=== PATIENT | male | born 1970 | race Caucasian/White ===

== ENCOUNTER 2024-05-23 10:30 | Outpatient (AMB) | payer BC, SELFPAY ==
--- NOTE | 2024-05-23 10:43 | MHC.OFFVIS ---
Vital Signs 05/23/24 10:55 Height 5 ft 10 in Weight 211 lb 3.245 oz BMI 30.3 BP 126/76 Blood Pressure Location Rt brachial Position Sitting Pulse 68 Pulse Source Pulse Oximeter Pulse Oximetry (%) 96 Oxygen Delivery Method Room Air Intake Visit Reasons: [place] consult. Intake Note: NEW PATIENT for initial colonoscopy consult Chief complaint; Pt denies any GI concerns at this time. Routine screening only. Cardiac hx noted. Stents placed as of last June. 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 male with past medical history of hyperlipidemia, hypertension, status post stent in June of 2019 for is here today for pre colonoscopy screening.? Patient was sent to us by his PCP.? This is his first colonoscopy screening.? Patient denies any gastrointestinal symptoms in the past or at present.? Denies any personal or family history of gastrointestinal disease, colon polyps, or CRC.? Denies history of difficulty with sedation or anesthesia in the past.? Negative for history of sleep apnea.? Denies any history of cardiac, renal, pulmonary, or hepatic disease.?? No history of infectious? diseases like hepatitis A, B, C, HIV or tuberculosis. Patient is on Brilinta and aspirin. Had stents placed last year in June. Patient has appointment with his flight deck officer Dr. Campo. Will send a message to surgical schedulers as well as to RN to call his flight deck officer for clearance [facility] Medical History (Updated 05/23/24 @ 10:54 by CLEMENCIA Carter) Dyslipidemia HTN (hypertension) Surgical History (Updated 05/23/24 @ 10:54 by CLEMENCIA Carter) History of heart artery stent Family History (Updated 05/23/24 @ 10:54 by CLEMENCIA Carter) Mother Cervical cancer Social History (Updated 05/23/24 @ 10:54 by CLEMENCIA Carter) Alcohol intake: current Comment: Socially only Patient Tobacco Use Status: Current someday Tobacco user Tobacco use type: Smokeless Tobacco e-Cigarette/Vaping Use: Never Used Use of substances other than those prescribed or required for medical reasons: No Review of Systems Const Denies weight gain and Denies weight loss ENT Reports no additional complaints, Denies dysphagia and Denies odynophagia Card Reports no additional complaints Resp Reports no additional complaints GI Denies abdominal pain, Denies belching, Denies melena, Denies bloating, Denies change in bowel habits, Denies dysphagia, Denies excessive flatus, Denies dyspepsia, Denies heartburn, Denies diarrhea, Denies loose stools, Denies nausea, Denies odynophagia and Denies vomiting Reports no additional complaints Musc Reports no additional complaints Neuro Reports no additional complaints Psych Reports no additional complaints Endo Reports no additional complaints Physical Exam Vital Signs: Last Vital Signs Pulse 68 05/23/24 10:55 BP 126/76 05/23/24 10:55 Pulse Ox 96 05/23/24 10:55 Oxygen Delivery Method Room Air 05/23/24 10:55 BMI result Body Mass Index 30.3 Const General: healthy appearing and no acute distress Nutritional Appearance: well nourished and obese Orientation/consciousness: patient oriented x3 Resp Effort & Inspection: normal respiratory effort, able to speak in complete sentences, no tracheal deviation and symmetric chest movement Auscultation: clear to auscultation bilaterally Cardio Rate: regular rate GI Inspection: Yes normal to inspection, No distended and Yes obesity Palpation (GI): Soft to palpation, not firm, nontender and No hepatosplenomegaly present Auscultation: normal bowel sounds General: Yes no CVA tenderness Back/Spine/Pelvis Back: no CVA tenderness Skin General skin exam: elasticity normal, turgor normal and dry skin Neuro General: patient oriented x3 Psych Appearance: grossly normal Mental Status: mental status grossly normal Assessment & Plan Assessment & Plan (1) Screen for colon cancer: Code(s): Z12.11 - Encounter for screening for malignant neoplasm of colon Plan Patient denies any GI, cardiac or respiratory symptoms.? However patient did had stents placed in June of last year. Currently he is on Brilinta and aspirin. Patient has a follow-up appointment with his flight deck officer in July. Please call him. Message sent to surgical schedule as an RN to call for clearance. Denies any issues with anesthesia in the past.? Denies any history of sleep apnea.? No history infectious diseases in the past or present.? ? No family or personal history of colon cancer or polyps.? Patient denies melena, hematochezia, unintentional weight loss or ribbon like stools.? Discussed at length the pre-procedure,? prep, diet & medications as well as what to expect prior, during and after the procedure.?? Stressed the importance of good bowel prep.? Recommended the use of Vaseline or Calmoseptine OTC & baby wipes with bowel movements to promote comfort.? ?Patient verbalizes understanding and agrees to plan of care.? He was given the opportunity to ask questions and all questions answered.? We will see him after the procedure.? Coding Level of Care Code New Pt Level 3 (40748) Diagnoses Screen for colon cancer Z12.11 Time Spent (min) 40 Comment 30 minutes spent with patient in additional 10 minutes spent reviewing his records
[2024-05-23 10:55] VITALS: BP 126/76; PULSE 68; O2SAT 96; BMI 30.3
--- OUTSIDE RECORDS SUMMARY | 2024-05-23 12:28 | XMS_ITS | Encounter Summary ---
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 [address] Through [address] [place] [address] [address] [place] [id number] Duglas Rondon, INDRA [address] [place] [address] [id number] Encounter for laboratory testing for COVID-19 virus Social History Tobacco Use Types Packs/Day Years Used Date Smoking Tobacco: Never Assessed Sex and Gender Information Value Date Recorded Sex Assigned at Not on file Gender Identity Not on file Sexual Orientation Not on file documented as of this encounter Plan of Treatment Not on file documented as of this encounter Procedures Procedure Name Priority Date/Time Associated Diagnosis Comments COVID-19 (SARS-COV-2) - SEMA4 LAB Routine 03/17/2020 1:04 PM EST Encounter for laboratory testing for COVID-19 virus [ICD-10-CM] documented in this encounter Results * COVID-19 (SARS-COV-2) (SEMA4) (03/17/2020 1:04 PM EST) COVID-19 RT-PCR NOT-DETEC SAVANA Not-Detec savana 03/19/2020 7:24 PM EST [facility] - [facility] Comment:Interpretation: The viral RNA was not detected, making the COVID-19 diagnosis less likely. Clinical correlation is highly recommended.Final report signed by Dayana Lopez, Ph.D., Laboratory DirectorTests performed at [facility] Nasopharyngeal swab / Unknown 03/17/2020 1:04 PM EST 03/17/2020 1:04 PM EST Narrative LINDSAYEduard CARMEN THOMAS - 03/19/2020 7:24 PM EST Performed by [facility] [address] [place] [address], CLIA# [id number] and [place] License# [id number] Duglas Rondon PA-C MICROBIOLOGY - NERAL ORDERABLES YOVANY THOMAS documented in this encounter Visit Diagnoses Diagnosis Encounter for laboratory testing for COVID-19 virus documented in this encounter
--- OUTSIDE RECORDS SUMMARY | 2024-05-23 12:28 | XMS_ITS | Data Portability ---
Author Organization [facility], , [facility] Address [address] [place] [address] Care Team Providers Care Art Tracer Name Role Phone ARNOLD ANDERSON OTHER [phone] ANGELICA VIVAR Primary Care Provider [phone] Assessment No assessment recorded. Plan of Treatment Reminders Order Date Submit Date Provider Last Modified By Organization Details Last Modified Time Details Appointments None recorded. Lab CMP, serum or plasma 2023 025 [facility], [address] [place] [address], [address], 5 09:34:15 lipid panel, serum 2023 025 [facility], [address] [place] [address], [address], 5 15:50:12 HbA1c (hemoglobin A1c), blood 2023 025 [facility], [address] [place] [address], [address], 5 11:39:05 CBC 2023 025 [facility], [address] [place] [address], [address], 5 10:34:54 lipid panel, serum 2023 024 [facility], [address] [place] [address], [address], 4 15:07:50 CBC 2023 024 [facility], [address] [place] [address], [address], 4 10:38:59 CMP, serum or plasma 2023 024 [facility], [address] [place] [address], [address], 4 15:07:50 lipid panel, serum 2023 024 [facility], [address] [place] [address], [address], 4 11:01:00 CMP, serum or plasma 2023 024 [facility], [address] [place] [address], [address], 4 12:16:05 CBC 2023 024 [facility], [address] [place] [address], 35916, 4 17:02:03 TSH, serum or plasma 2023 024 [facility], [address] [place] [address], [address], 4 10:29:23 CRP, high sensitivity , serum or plasma 2023 024 [facility], [address] [place] [address], [address], 4 19:02:40 lipid panel, serum 2021 022 [facility], [address] [place] [address], [address], 2 11:16:17 CMP, serum or plasma 2021 022 [facility], [address] [place] [address], [address], 2 11:16:15 CBC 2021 022 [facility], [address] [facility], [place], [address], 2 15:40:26 Referral None recorded. Procedures colonoscopy procedure (PROC) [address] [facility], [address] [place], [address], 4 14:42:32 colonoscopy procedure (PROC) - 1st screening colonoscopy [address] [facility], [address] [place], [address], 2 10:23:49 Surgeries None recorded. Imaging None recorded. Medication Orders albuterol sulfate HFA 90 mcg/actuati on aerosol [facility]er [facility]23 [facility] [address] [id number], [address] [place], [place], [id number], 4 09:35:52 prednisone 20 mg tablet 2023 024 [facility] [address] [id number], [address] [place], [place], [id number], 4 12:00:06 tadalafil 5 mg tablet 2021 022 [facility][id number], [address] [place], [place], [id number], 2 14:22:20 Patient TargetsNo targets recorded. Patient Instructions Encounter Date Encounter Id Patient Instructions Last Modified By Organization Details Last Modified Time 12/24/2021 [id number] Well Visit 50 to 65: Care Instructions Not available 12/24/2021 14:22:06 04/19/2023 [id number] Well Visit 50 to 65: Care Instructions Not available 04/19/2023 11:51:24 04/28/2023 [id number] bronchitis: care instructions [email or web address] Not available 04/28/2023 13:13:28 oral corticosteroids: care instructions [email or web address] Not available 04/28/2023 13:13:28 Reason for Referral None Reported. Results Created Date Observation Date Name Description Value Unit Range Abnormal Flag Note LastModifiedBy Organization Detail LastModifiedTime 12/25/19 22 12/24/2021 CBC WBC 5.70 K/??L 4.23-9 .07 Not Available [address], [address], 12/24/2021 15:40:25 12/25/19 22 12/24/2021 CBC RBC 5.29 M/??L 4.63-6 .08 Not Available [address], [address], 12/24/2021 15:40:25 12/25/19 22 12/24/2021 CBC HGB 15.4 g/dL 13.7-1 7.5 Not Available [address], [address], 12/24/2021 15:40:25 12/25/19 22 12/24/2021 CBC HCT 44.8 % 40.1-5 1.0 Not Available [address], [address], 12/24/2021 15:40:25 12/25/19 22 12/24/2021 CBC MCV 84.7 fL 79.0-9 2.2 Not Available [address], [address], 12/24/2021 15:40:25 12/25/19 22 12/24/2021 CBC MCH 29.1 pg 25.7-3 2.2 Not Available [address], [address], 12/24/2021 15:40:25 12/25/19 22 12/24/2021 CBC MCHC 34.4 g/dL 32.3-3 6.5 Not Available [address], [address], 12/24/2021 15:40:25 12/25/19 22 12/24/2021 CBC plt 219 K/??L 163-33 7 Not Available [address], [address]47, 12/24/2021 15:40:25 12/25/19 22 12/24/2021 CBC MPV 10.7 fL 9.4-12 .4 Not Available [address], [address], 12/24/2021 15:40:25 12/25/19 22 12/24/2021 CBC neut% 58.3 % 34.0-6 7.9 Not Available [address], [address]79, 12/24/2021 15:40:25 12/25/19 22 12/24/2021 CBC neut# 3.33 1.78-5 .38 Not Available [address], [address], 12/24/2021 15:40:25 12/25/19 22 12/24/2021 CBC lymph % 31.1 % 21.8-5 3.1 Not Available [address], [address], 12/24/2021 15:40:25 12/25/19 22 12/24/2021 CBC lymph # 1.77 K/??L 1.32-3 .57 Not Available [address], [address], 12/24/2021 15:40:25 12/25/19 22 12/24/2021 CBC mono% 7.9 % 5.3-12 .2 Not Available [address], 97162, 12/24/2021 15:40:25 12/25/19 22 12/24/2021 CBC mono# 0.45 0.30-0 .82 Not Available [address], 6[address], 12/24/2021 15:40:25 12/25/19 22 12/24/2021 CBC eo% 1.8 % 0.8-7. 0 Not Available [address], [address], 12/24/2021 15:40:25 12/25/19 22 12/24/2021 CBC eo# 0.10 0.04-0 .54 Not Available [address], 776[address], 12/24/2021 15:40:25 12/25/19 22 12/24/2021 CBC baso% 0.7 % 0.2-1. 2 Not Available [address], [address], 12/24/2021 15:40:25 12/25/19 22 12/24/2021 CBC baso# 0.04 0.00-0 .08 Not Available [address], [address]359, 12/24/2021 15:40:25 12/25/19 22 12/24/2021 CBC RDW-CV 11.7 % 11.6-1 4.4 Not Available [address], [address], 12/24/2021 15:40:25 12/25/19 22 12/24/2021 CBC Ig% 0.200 % 0.000- 1.500 Ig % >0.5 Indic ates possi ble Left Shift Not Available [address], 09649, 12/24/2021 15:40:25 12/25/19 22 12/24/2021 CBC Ig# 0.010 0.000- 0.093 Not Available [address], 26071, 12/24/2021 15:40:25 12/25/19 22 12/24/2021 CBC NRBC% 0.0 % 0.0-0. 2 Not Available [address], 78893, 12/24/2021 15:40:25 12/25/19 22 12/24/2021 CBC NRBC# 0.000 0.000- 0.012 Not Available [address], [address], 12/24/2021 15:40:25 12/25/19 22 12/25/2021 COMP. METAB OLIC PANEL glucose 87 mg/dL 70-100 Not Available [address], 8[address], 12/25/2021 11:16:15 12/25/19 22 12/25/2021 COMP. METAB OLIC PANEL BUN 17 mg/dL 7-18 Not Available [address], 796[address], 12/25/2021 11:16:15 12/25/19 22 12/25/2021 COMP. METAB OLIC PANEL creatinine 1.2 mg/dL 0.8-1. 3 Not Available [address], [address], 12/25/2021 11:16:15 12/25/19 22 12/25/2021 COMP. METAB OLIC PANEL B/C 14.2 ratio Not Available [address], [address], 12/25/2021 11:16:15 12/25/19 22 12/25/2021 COMP. METAB OLIC PANEL GFR >=60ML /MIN mL/mi n normal >=60m L/min - Manisha l or midly reduc ed <60mL /min- Decre ased kidne y funct ion <15mL /min - Kidne y failu re [facility] calcu lates estim ated Glome rular Filtr ation Rate (eGFR ) using the Chron ic Kidne y Disea se Epide miolo gy Colla borat ion (CKD- EPI) Equat ion (Tasha r et. al 2020) as recom nathaly d by the Natio nal Kidne y Found ation . eGFR is based on age, serum creat inine , and sex. CKD-E PI does not calcu late eGFR by race, does not apply to child filiberto (age <18 years ), and shoul d not be used in pregn sunita. Not Available [address], [address], 12/25/2021 11:16:15 12/25/19 22 12/25/2021 COMP. METAB OLIC PANEL sodium 139 mmol/ L 136-14 5 Not Available [address], [address], 12/25/2021 11:16:15 12/25/19 22 12/25/2021 COMP. METAB OLIC PANEL potassium 4.7 mmol/ L 3.5-5. 1 Not Available [address], [address], 12/25/2021 11:16:15 12/25/19 22 12/25/2021 COMP. METAB OLIC PANEL chloride 100 mmol/ L 96-107 Not Available [address], [address], 12/25/2021 11:16:15 12/25/19 22 12/25/2021 COMP. METAB OLIC PANEL anion gap 11.5 5.0-15 .0 Not Available [address], [address]9836, 12/25/2021 11:16:15 12/25/19 22 12/25/2021 COMP. METAB OLIC PANEL CO2 28 mmol/ L 21-32 Not Available [address], 9[address]24, 12/25/2021 11:16:15 12/25/19 22 12/25/2021 COMP. METAB OLIC PANEL calcium 8.7 mg/dL 8.5-10 .3 Not Available [address], 68707, 12/25/2021 11:16:15 12/25/19 22 12/25/2021 COMP. METAB OLIC PANEL total protein 6.8 g/dL 6.4-8. 2 Not Available [address], 11481, 12/25/2021 11:16:15 12/25/19 22 12/25/2021 COMP. METAB OLIC PANEL albumin 4.3 g/dL 3.4-5. 0 Not Available [address], 40884, 12/25/2021 11:16:15 12/25/19 22 12/25/2021 COMP. METAB OLIC PANEL globulin 2.5 g/dL Not Available [address], 06442, 12/25/2021 11:16:15 12/25/19 22 12/25/2021 COMP. METAB OLIC PANEL A/G 1.7 ratio 0.8-2. 0 Not Available [address], [address]17, 12/25/2021 11:16:15 12/25/19 22 12/25/2021 COMP. METAB OLIC PANEL total bilirubin 0.70 mg/dL 0.00-1 .00 Not Available [address], 01071, 12/25/2021 11:16:15 12/25/19 22 12/25/2021 COMP. METAB OLIC PANEL AST 28 U/L 0-37 Not Available [address], 6[address], 12/25/2021 11:16:15 12/25/19 22 12/25/2021 COMP. METAB OLIC PANEL ALT 50 U/L 6-63 Not Available [address], 88055, 12/25/2021 11:16:15 12/25/19 22 12/25/2021 COMP. METAB OLIC PANEL alk. phos. 66 U/L 50-136 Not Available [address], [address]21, 12/25/2021 11:16:15 12/25/19 22 12/25/2021 LIPID PANEL cholesterol 258 mg/dL <200 mg/dl Monika able 200-2 39 mg/dl Borde rline High >240 mg/dl High Not Available [address], [address]60, 12/25/2021 11:16:17 12/25/19 22 12/25/2021 LIPID PANEL triglyceride s 167 mg/dL <150 mg/dL Manisha l 150-1 99 mg/dL Borde rline High 200-4 99 mg/dL High >500 mg/dL Very High Not Available [address], 25792, 12/25/2021 11:16:17 12/25/19 22 12/25/2021 LIPID PANEL direct HDL 40 mg/dL <40 mg/dl - Major Risk for CHD >60 mg/dl - Negat juan m Risk for CHD Not Available [address], [address], 12/25/2021 11:16:17 12/25/1912/25/2021 DIREC T LDL direct LDL 182 mg/dL RISK CATEG ORY LDL GOAL _ CHD or CHD Risk Equiv alent s <100 mg/dl (10-y ear risk >20%) 2+ Risk Facto rs <130 mg/dl (10-y ear risk <= 20%) 0-1 Risk Facto r??? <160 mg/dl ??? Almos t all peopl e with 0-1 risk facto r have a 10 year risk <10%, thus 10 year risk asses ment in peopl e with 0-1 risk facto r is not clara magallony. Not Available [address], [address], 12/25/2021 11:16:18 04/19/19 24 04/19/2023 CBC WBC 4.73 K/??L 4.23-9 .07 Not Available [address], [address], 04/19/2023 17:02:03 04/19/19 24 04/19/2023 CBC RBC 5.05 M/??L 4.63-6 .08 Not Available [address], 97465, 04/19/2023 17:02:03 04/19/19 24 04/19/2023 CBC HGB 15.0 g/dL 13.7-1 7.5 Not Available [address], 60407, 04/19/2023 17:02:03 04/19/19 24 04/19/2023 CBC HCT 43.8 % 40.1-5 1.0 Not Available [address], 47925, 04/19/2023 17:02:03 04/19/19 24 04/19/2023 CBC MCV 86.7 fL 79.0-9 2.2 Not Available [address], 67306, 04/19/2023 17:02:03 04/19/19 24 04/19/2023 CBC MCH 29.7 pg 25.7-3 2.2 Not Available [address], 18447, 04/19/2023 17:02:03 04/19/19 24 04/19/2023 CBC MCHC 34.2 g/dL 32.3-3 6.5 Not Available [address], 23636, 04/19/2023 17:02:03 04/19/19 24 04/19/2023 CBC plt 199 K/??L 163-33 7 Not Available [address], 96358, 04/19/2023 17:02:03 04/19/19 24 04/19/2023 CBC MPV 11.2 fL 9.4-12 .4 Not Available [address], 38249, 04/19/2023 17:02:03 04/19/19 24 04/19/2023 CBC neut% 56.4 % 34.0-6 7.9 Not Available [address], 47040, 04/19/2023 17:02:03 04/19/19 24 04/19/2023 CBC neut# 2.67 1.78-5 .38 Not Available [address], 42364, 04/19/2023 17:02:03 04/19/19 24 04/19/2023 CBC lymph % 33.0 % 21.8-5 3.1 Not Available [address], 69662, 04/19/2023 17:02:03 04/19/19 24 04/19/2023 CBC lymph # 1.56 K/??L 1.32-3 .57 Not Available [address], 50248, 04/19/2023 17:02:03 04/19/19 24 04/19/2023 CBC mono% 8.5 % 5.3-12 .2 Not Available [address], 61357, 04/19/2023 17:02:03 04/19/19 24 04/19/2023 CBC mono# 0.40 0.30-0 .82 Not Available [address], 09128, 04/19/2023 17:02:03 04/19/19 24 04/19/2023 CBC eo% 1.3 % 0.8-7. 0 Not Available [address], 12580, 04/19/2023 17:02:03 04/19/19 24 04/19/2023 CBC eo# 0.06 0.04-0 .54 Not Available [address], 6[address]12, 04/19/2023 17:02:03 04/19/19 24 04/19/2023 CBC baso% 0.6 % 0.2-1. 2 Not Available [address], 24723, 04/19/2023 17:02:03 04/19/19 24 04/19/2023 CBC baso# 0.03 0.00-0 .08 Not Available [address], 66902, 04/19/2023 17:02:03 04/19/19 24 04/19/2023 CBC RDW-CV 11.7 % 11.6-1 4.4 Not Available [address], 60471, 04/19/2023 17:02:03 04/19/19 24 04/19/2023 CBC Ig% 0.200 % 0.000- 1.500 Ig % >0.5 Indic ates possi ble Left Shift Not Available [address], 94497, 04/19/2023 17:02:03 04/19/19 24 04/19/2023 CBC Ig# 0.010 0.000- 0.093 Not Available [address], 24976, 04/19/2023 17:02:03 04/19/19 24 04/19/2023 CBC NRBC% 0.0 % 0.0-0. 2 Not Available [address], 77765, 04/19/2023 17:02:03 04/19/19 24 04/19/2023 CBC NRBC# 0.000 0.000- 0.012 Not Available [address], 91220, 04/19/2023 17:02:03 04/19/19 24 04/20/2023 TSH TSH 2.76 uIU/m L 0.50-6 .00 The Ameri can [employer] ge [facility] Endoc rinol ogy and Ameri can Thyro id Assoc iatio n recom mend goal TSH value s betwe en 0.4-4 .0 mIU/m L. Not Available [address], [address], 04/20/2023 10:29:23 04/19/19 24 04/20/2023 LIPID PANEL cholesterol 272 mg/dL <200 mg/dl Monika able 200-2 39 mg/dl Borde rline High >240 mg/dl High Not Available [address], 13980, 04/20/2023 11:01:00 04/19/19 24 04/20/2023 LIPID PANEL triglyceride s 144 mg/dL <150 mg/dL Manisha l 150-1 99 mg/dL Borde rline High 200-4 99 mg/dL High >500 mg/dL Very High Not Available [address], [address], 04/20/2023 11:01:00 04/19/19 24 04/20/2023 LIPID PANEL direct HDL 44 mg/dL <40 mg/dl - Major Risk for CHD >60 mg/dl - Negat juan m Risk for CHD Not Available [address], [address], 04/20/2023 11:01:00 04/19/19 24 04/20/2023 DIREC T LDL direct LDL 173 mg/dL RISK CATEG ORY LDL GOAL _ CHD or CHD Risk Equiv alent s <100 mg/dl (10-y ear risk >20%) 2+ Risk Facto rs <130 mg/dl (10-y ear risk <= 20%) 0-1 Risk Facto r??? <160 mg/dl ??? Almos t all peopl e with 0-1 risk facto r have a 10 year risk <10%, thus 10 year risk asses ment in peopl e with 0-1 risk facto r is not neces moo. Not Available [address], [address], 04/20/2023 11:01:02 04/19/19 24 04/20/2023 HS CRP hs CRP 1.5 mg/L normal Refer ence Range Optim al <1.0 Jailene BOYKIN et al. Endoc r Pract .2017 ;23(S uppl 2):1- 87. For ages >17 Years : hs-CR P mg/L Risk Accor ding to AHA/C DC Guide lines <1.0 Lower relat juan m cardi ovasc ular risk. 1.0-3 .0 [place] ge relat juan m cardi ovasc ular risk. 3.1-1 0.0 Highe r relat juan m cardi ovasc ular risk. Consi jordana retes ting in 1 to 2 weeks to exclu de a benig n trans ient eleva tion in the basel ine CRP value secon jennie to infec tion or infla mmati on. >10.0 Persi stent eleva tion, upon retes ting, may be assoc iated with infec tion and infla mmati on. Not Available [facility] [address] [place] [address], [place], [address], 04/20/2023 19:02:40 04/19/19 24 04/22/2023 COMP. METAB OLIC PANEL glucose 105 mg/dL 70-100 high Not Available [address], [address], 04/22/2023 12:16:05 04/19/19 24 04/22/2023 COMP. METAB OLIC PANEL BUN 18 mg/dL 7-18 Not Available [address], [address], 04/22/2023 12:16:05 04/19/19 24 04/22/2023 COMP. METAB OLIC PANEL creatinine 1.2 mg/dL 0.8-1. 3 Not Available [address], 22516, 04/22/2023 12:16:05 04/19/19 24 04/22/2023 COMP. METAB OLIC PANEL B/C 15.0 ratio Not Available [address], [address], 04/22/2023 12:16:05 04/19/1904/22/2023 COMP. METAB OLIC PANEL GFR >=60ML /MIN mL/mi n normal >=60m L/min - Manisha l or midly reduc ed <60mL /min- Decre ased kidne y funct ion <15mL /min - Kidne y failu re [facility] calcu lates estim ated Glome rular Filtr ation Rate (eGFR ) using the Chron ic Kidne y Disea se Epide miolo gy Colla borat ion (CKD- EPI) Equat ion (Tasha r et. al 2020) as recom nathaly d by the Natio nal Kidne y Found ation . eGFR is based on age, serum creat inine , and sex. CKD-E PI does not calcu late eGFR by race, does not apply to child filiberto (age <18 years ), and shoul d not be used in pregn sunita. Not Available [address], [address], 04/22/2023 12:16:05 04/19/19 24 04/22/2023 COMP. METAB OLIC PANEL sodium 140 mmol/ L 136-14 5 Not Available [address], [address]60, 04/22/2023 12:16:05 04/19/19 24 04/22/2023 COMP. METAB OLIC PANEL potassium 4.5 mmol/ L 3.5-5. 1 Not Available [address], [address]331, 04/22/2023 12:16:05 04/19/19 24 04/22/2023 COMP. METAB OLIC PANEL chloride 103 mmol/ L 96-107 Not Available [address], 85180, 04/22/2023 12:16:05 04/19/19 24 04/22/2023 COMP. METAB OLIC PANEL anion gap 11.5 5.0-15 .0 Not Available [address], [address], 04/22/2023 12:16:05 04/19/19 24 04/22/2023 COMP. METAB OLIC PANEL CO2 26 mmol/ L 21-32 Not Available [address], 20998, 04/22/2023 12:16:05 04/19/19 24 04/22/2023 COMP. METAB OLIC PANEL calcium 8.7 mg/dL 8.5-10 .3 Not Available [address], 7[address], 04/22/2023 12:16:05 04/19/19 24 04/22/2023 COMP. METAB OLIC PANEL total protein 7.0 g/dL 6.4-8. 2 Not Available [address], [address]24, 04/22/2023 12:16:05 04/19/19 24 04/22/2023 COMP. METAB OLIC PANEL albumin 4.2 g/dL 3.4-5. 0 Not Available [address], 946[address], 04/22/2023 12:16:05 04/19/19 24 04/22/2023 COMP. METAB OLIC PANEL globulin 2.8 g/dL Not Available [address], 70977, 04/22/2023 12:16:05 04/19/19 24 04/22/2023 COMP. METAB OLIC PANEL A/G 1.5 ratio 0.8-2. 0 Not Available [address], 26765, 04/22/2023 12:16:05 04/19/19 24 04/22/2023 COMP. METAB OLIC PANEL total bilirubin 0.70 mg/dL 0.00-1 .00 Not Available [address], 6[address], 04/22/2023 12:16:05 04/19/19 24 04/22/2023 COMP. METAB OLIC PANEL AST 28 U/L 0-37 Not Available [address], 85854, 04/22/2023 12:16:05 04/19/19 24 04/22/2023 COMP. METAB OLIC PANEL ALT 49 U/L 6-63 Not Available [address], 876[address], 04/22/2023 12:16:05 04/19/19 24 04/22/2023 COMP. METAB OLIC PANEL alk. phos. 57 U/L 50-136 Not Available [address], [address]274, 04/22/2023 12:16:05 07/12/19 24 07/13/2023 LIPID PANEL cholesterol 204 mg/dL <200 mg/dl Monika able 200-2 39 mg/dl Borde rline High >240 mg/dl High Not Available [address], [address]26, 07/13/2023 11:40:35 07/12/19 24 07/13/2023 LIPID PANEL triglyceride s 171 mg/dL <150 mg/dL Manisha l 150-1 99 mg/dL Borde rline High 200-4 99 mg/dL High >500 mg/dL Very High Not Available [address], 7[address]25, 07/13/2023 11:40:35 07/12/19 24 07/13/2023 LIPID PANEL direct HDL 36 mg/dL <40 mg/dl - Major Risk for CHD >60 mg/dl - Negat juan m Risk for CHD Not Available [address], 79697, 07/13/2023 11:40:35 07/12/19 24 07/13/2023 DIREC T LDL direct LDL 134 mg/dL RISK CATEG ORY LDL GOAL _ CHD or CHD Risk Equiv alent s <100 mg/dl (10-y ear risk >20%) 2+ Risk Facto rs <130 mg/dl (10-y ear risk <= 20%) 0-1 Risk Facto r??? <160 mg/dl ??? Almos t all peopl e with 0-1 risk facto r have a 10 year risk <10%, thus 10 year risk asses ment in peopl e with 0-1 risk facto r is not clara cortés. Not Available [address], [address], 07/13/2023 11:40:37 10/13/19 24 10/13/2023 CBC WBC 5.93 K/??L 4.23-9 .07 Not Available [address], 10395, 10/13/2023 10:38:59 10/13/19 24 10/13/2023 CBC RBC 5.21 M/??L 4.63-6 .08 Not Available [address], 63521, 10/13/2023 10:38:59 10/13/19 24 10/13/2023 CBC HGB 15.3 g/dL 13.7-1 7.5 Not Available [address], 85806, 10/13/2023 10:38:59 10/13/19 24 10/13/2023 CBC HCT 44.2 % 40.1-5 1.0 Not Available [address], 01636, 10/13/2023 10:38:59 10/13/19 24 10/13/2023 CBC MCV 84.8 fL 79.0-9 2.2 Not Available [address], [address]114, 10/13/2023 10:38:59 10/13/19 24 10/13/2023 CBC MCH 29.4 pg 25.7-3 2.2 Not Available [address], 78244, 10/13/2023 10:38:59 10/13/19 24 10/13/2023 CBC MCHC 34.6 g/dL 32.3-3 6.5 Not Available [address], [address]77, 10/13/2023 10:38:59 10/13/19 24 10/13/2023 CBC plt 185 K/??L 163-33 7 Not Available [address], 04569, 10/13/2023 10:38:59 10/13/19 24 10/13/2023 CBC MPV 10.9 fL 9.4-12 .4 Not Available [address], 11812, 10/13/2023 10:38:59 10/13/19 24 10/13/2023 CBC neut% 59.2 % 34.0-6 7.9 Not Available [address], 74280, 10/13/2023 10:38:59 10/13/19 24 10/13/2023 CBC neut# 3.51 1.78-5 .38 Not Available [address], 52350, 10/13/2023 10:38:59 10/13/19 24 10/13/2023 CBC lymph % 28.3 % 21.8-5 3.1 Not Available [address], 48927, 10/13/2023 10:38:59 10/13/19 24 10/13/2023 CBC lymph # 1.68 K/??L 1.32-3 .57 Not Available [address], 71176, 10/13/2023 10:38:59 10/13/19 24 10/13/2023 CBC mono% 8.8 % 5.3-12 .2 Not Available [address], 16536, 10/13/2023 10:38:59 10/13/19 24 10/13/2023 CBC mono# 0.52 0.30-0 .82 Not Available [address], [address]11, 10/13/2023 10:38:59 10/13/19 24 10/13/2023 CBC eo% 2.5 % 0.8-7. 0 Not Available [address], 84398, 10/13/2023 10:38:59 10/13/19 24 10/13/2023 CBC eo# 0.15 0.04-0 .54 Not Available [address], 80098, 10/13/2023 10:38:59 10/13/19 24 10/13/2023 CBC baso% 1.0 % 0.2-1. 2 Not Available [address], [address], 10/13/2023 10:38:59 10/13/19 24 10/13/2023 CBC baso# 0.06 0.00-0 .08 Not Available [address], [address], 10/13/2023 10:38:59 10/13/19 24 10/13/2023 CBC RDW-CV 11.7 % 11.6-1 4.4 Not Available [address], [address], 10/13/2023 10:38:59 10/13/19 24 10/13/2023 CBC Ig% 0.200 % 0.000- 1.500 Ig % >0.5 Indic ates possi ble Left Shift Not Available [address], [address], 10/13/2023 10:38:59 10/13/19 24 10/13/2023 CBC Ig# 0.010 0.000- 0.093 Not Available [address], [address], 10/13/2023 10:38:59 10/13/19 24 10/13/2023 CBC NRBC% 0.0 % 0.0-0. 2 Not Available [address], [address], 10/13/2023 10:38:59 10/13/19 24 10/13/2023 CBC NRBC# 0.000 0.000- 0.012 Not Available [address], [address], 10/13/2023 10:38:59 10/13/19 24 10/15/2023 COMP. METAB OLIC PANEL glucose 93 mg/dL 70-100 Not Available [address], [address], 10/15/2023 15:07:50 10/13/19 24 10/15/2023 COMP. METAB OLIC PANEL BUN 21 mg/dL 7-18 high Not Available [address], [address], 10/15/2023 15:07:50 10/13/19 24 10/15/2023 COMP. METAB OLIC PANEL creatinine 1.3 mg/dL 0.8-1. 3 Not Available [address], [address], 10/15/2023 15:07:50 10/13/19 24 10/15/2023 COMP. METAB OLIC PANEL B/C 16.2 ratio Not Available [address], [address], 10/15/2023 15:07:50 10/13/19 24 10/15/2023 COMP. METAB OLIC PANEL GFR >=60ML /MIN mL/mi n normal >=60m L/min - Manisha l or midly reduc ed <60mL /min- Decre ased kidne y funct ion <15mL /min - Kidne y failu re [facility] calcu lates estim ated Glome rular Filtr ation Rate (eGFR ) using the Chron ic Kidne y Disea se Epide miolo gy Colla borat ion (CKD- EPI) Equat ion (Tasha r et. al 2020) as recom nathaly d by the Natio nal Kidne y Found ation . eGFR is based on age, serum creat inine , and sex. CKD-E PI does not calcu late eGFR by race, does not apply to child filiberto (age <18 years ), and shoul d not be used in pregn sunita. Not Available [address], [address], 10/15/2023 15:07:50 10/13/19 24 10/15/2023 COMP. METAB OLIC PANEL sodium 141 mmol/ L 136-14 5 Not Available [address], [address], 10/15/2023 15:07:50 10/13/19 24 10/15/2023 COMP. METAB OLIC PANEL potassium 5.0 mmol/ L 3.5-5. 1 Not Available [address], [address], 10/15/2023 15:07:50 10/13/19 24 10/15/2023 COMP. METAB OLIC PANEL chloride 103 mmol/ L 96-107 Not Available [address], [address], 10/15/2023 15:07:50 10/13/19 24 10/15/2023 COMP. METAB OLIC PANEL anion gap 9.4 5.0-15 .0 Not Available [address], [address], 10/15/2023 15:07:50 10/13/19 24 10/15/2023 COMP. METAB OLIC PANEL CO2 29 mmol/ L 21-32 Not Available [address], [address], 10/15/2023 15:07:50 10/13/19 24 10/15/2023 COMP. METAB OLIC PANEL calcium 8.9 mg/dL 8.5-10 .3 Not Available [address], [address], 10/15/2023 15:07:50 10/13/19 24 10/15/2023 COMP. METAB OLIC PANEL total protein 6.7 g/dL 6.4-8. 2 Not Available [address], [address], 10/15/2023 15:07:50 10/13/19 24 10/15/2023 COMP. METAB OLIC PANEL albumin 4.1 g/dL 3.4-5. 0 Not Available [address], [address], 10/15/2023 15:07:50 10/13/19 24 10/15/2023 COMP. METAB OLIC PANEL globulin 2.6 g/dL Not Available [address], [address], 10/15/2023 15:07:50 10/13/19 24 10/15/2023 COMP. METAB OLIC PANEL A/G 1.6 ratio 0.8-2. 0 Not Available [address], [address], 10/15/2023 15:07:50 10/13/19 24 10/15/2023 COMP. METAB OLIC PANEL total bilirubin 0.90 mg/dL 0.00-1 .00 Not Available [address], [address], 10/15/2023 15:07:50 10/13/19 24 10/15/2023 COMP. METAB OLIC PANEL AST 31 U/L 0-37 Not Available [address], [address], 10/15/2023 15:07:50 10/13/19 24 10/15/2023 COMP. METAB OLIC PANEL ALT 59 U/L 6-63 Not Available [address], [address], 10/15/2023 15:07:50 10/13/19 24 10/15/2023 COMP. METAB OLIC PANEL alk. phos. 62 U/L 50-136 Not Available [address], [address], 10/15/2023 15:07:50 10/13/19 24 10/15/2023 LIPID PANEL cholesterol 138 mg/dL <200 mg/dl Monika able 200-2 39 mg/dl Matias gamino High >240 mg/dl High Not Available [address], [address], 10/15/2023 15:07:50 10/13/19 24 10/15/2023 LIPID PANEL triglyceride s 97 mg/dL <150 mg/dL Manisha l 150-1 99 mg/dL Borde rline High 200-4 99 mg/dL High >500 mg/dL Very High Not Available [address], [address], 10/15/2023 15:07:50 10/13/19 24 10/15/2023 LIPID PANEL direct HDL 43 mg/dL <40 mg/dl - Major Risk for CHD >60 mg/dl - Negat juan m Risk for CHD Not Available [address], [address], 10/15/2023 15:07:50 10/13/19 24 10/15/2023 LDL - CALCU LATED LDL - calculated 75.6 RISK CATEG ORY LDL GOAL _ CHD or CHD Risk Equiv alent s <100 mg/dl (10-y ear risk >20%) 2+ Risk Facto rs <130 mg/dl (10-y ear risk <= 20%) 0-1 Risk Facto r??? <160 mg/dl ??? Almos t all peopl e with 0-1 risk facto r have a 10 year risk <10%, thus 10 year risk asses ment in peopl e with 0-1 risk facto r is not neces moo. Not Available [address], [address], 10/15/2023 15:07:51 04/24/19 25 04/24/2024 CBC WBC 6.52 K/??L 4.23-9 .07 Not Available [address], [address], 04/24/2024 10:34:54 04/24/19 25 04/24/2024 CBC RBC 5.10 M/??L 4.63-6 .08 Not Available [address], [address], 04/24/2024 10:34:54 04/24/19 25 04/24/2024 CBC HGB 15.2 g/dL 13.7-1 7.5 Not Available [address], [address], 04/24/2024 10:34:54 04/24/19 25 04/24/2024 CBC HCT 44.1 % 40.1-5 1.0 Not Available [address], [address], 04/24/2024 10:34:54 04/24/19 25 04/24/2024 CBC MCV 86.5 fL 79.0-9 2.2 Not Available [address], [address], 04/24/2024 10:34:54 04/24/19 25 04/24/2024 CBC MCH 29.8 pg 25.7-3 2.2 Not Available [address], [address], 04/24/2024 10:34:54 04/24/19 25 04/24/2024 CBC MCHC 34.5 g/dL 32.3-3 6.5 Not Available [address], [address], 04/24/2024 10:34:54 04/24/19 25 04/24/2024 CBC plt 198 K/??L 163-33 7 Not Available [address], [address], 04/24/2024 10:34:54 04/24/19 25 04/24/2024 CBC MPV 10.8 fL 9.4-12 .4 Not Available [address], [address], 04/24/2024 10:34:54 04/24/19 25 04/24/2024 CBC neut% 50.7 % 34.0-6 7.9 Not Available [address], [address], 04/24/2024 10:34:54 04/24/19 25 04/24/2024 CBC neut# 3.30 1.78-5 .38 Not Available [address], [address], 04/24/2024 10:34:54 04/24/19 25 04/24/2024 CBC lymph % 32.8 % 21.8-5 3.1 Not Available [address], [address], 04/24/2024 10:34:54 04/24/19 25 04/24/2024 CBC lymph # 2.14 K/??L 1.32-3 .57 Not Available [address], [address], 04/24/2024 10:34:54 04/24/19 25 04/24/2024 CBC mono% 11.0 % 5.3-12 .2 Not Available [address], [address], 04/24/2024 10:34:54 04/24/19 25 04/24/2024 CBC mono# 0.72 0.30-0 .82 Not Available [address], [address], 04/24/2024 10:34:54 04/24/19 25 04/24/2024 CBC eo% 4.4 % 0.8-7. 0 Not Available [address], [address], 04/24/2024 10:34:54 04/24/19 25 04/24/2024 CBC eo# 0.29 0.04-0 .54 Not Available [address], [address], 04/24/2024 10:34:54 04/24/19 25 04/24/2024 CBC baso% 0.9 % 0.2-1. 2 Not Available [address], [address], 04/24/2024 10:34:54 04/24/19 25 04/24/2024 CBC baso# 0.06 0.00-0 .08 Not Available [address], [address], 04/24/2024 10:34:54 04/24/19 25 04/24/2024 CBC RDW-CV 11.4 % 11.6-1 4.4 low Not Available [address], [address], 04/24/2024 10:34:54 04/24/19 25 04/24/2024 CBC Ig% 0.200 % 0.000- 1.500 Ig % >0.5 Indic ates possi ble Left Shift Not Available [address], [address], 04/24/2024 10:34:54 04/24/19 25 04/24/2024 CBC Ig# 0.010 0.000- 0.093 Not Available [address], [address], 04/24/2024 10:34:54 04/24/19 25 04/24/2024 CBC NRBC% 0.0 % 0.0-0. 2 Not Available [address], [address], 04/24/2024 10:34:54 04/24/19 25 04/24/2024 CBC NRBC# 0.000 0.000- 0.012 Not Available [address], [address], 04/24/2024 10:34:54 04/24/1904/24/2024 HGB A1C hemoglobin A1C 5.6 % 4.8-6. 0 Goal: <7% in Patie nts with Diabe chinyere An A1c betwe en 5.7-6 .4% is ident ified as pre-d iabet es and sugge sts risk for progr essio n to diabe chinyere Two a1c value s of 6.5% or highe r is consi stent with a diagn osis of diabe chinyere but may need furth er confi rmati on Not Available [address], [address], 04/24/2024 11:39:05 04/24/1904/24/2024 HGB A1C estimated average glucose 114.0 mg/dL Not Available [address], [address], 04/24/2024 11:39:05 04/24/1904/24/2024 LIPID PANEL cholesterol 150 mg/dL <200 mg/dl Monika able 200-2 39 mg/dl Borde rline High >240 mg/dl High Not Available [address], [address], 04/24/2024 15:50:12 04/24/19 25 04/24/2024 LIPID PANEL triglyceride s 134 mg/dL <150 mg/dL Manisha l 150-1 99 mg/dL Borde rline High 200-4 99 mg/dL High >500 mg/dL Very High Not Available [address], [address], 04/24/2024 15:50:12 04/24/1904/24/2024 LIPID PANEL direct HDL 47 mg/dL <40 mg/dl - Major Risk for CHD >60 mg/dl - Negat juan m Risk for CHD Not Available [address], [address], 04/24/2024 15:50:12 04/24/1904/24/2024 LDL - CALCU LATED LDL - calculated 76 RISK CATEG ORY LDL GOAL _ CHD or CHD Risk Equiv alent s <100 mg/dl (10-y ear risk >20%) 2+ Risk Facto rs <130 mg/dl (10-y ear risk <= 20%) 0-1 Risk Facto r??? <160 mg/dl ??? Almos t all peopl e with 0-1 risk facto r have a 10 year risk <10%, thus 10 year risk asses ment in peopl e with 0-1 risk facto r is not clara cortés. Not Available [address], [address], 04/24/2024 15:50:13 04/24/19 25 04/26/2024 COMP. METAB OLIC PANEL glucose 100 mg/dL 70-100 Not Available [address], [address], 04/26/2024 09:34:15 04/24/19 25 04/26/2024 COMP. METAB OLIC PANEL BUN 20 mg/dL 7-18 high Not Available [address], [address], 04/26/2024 09:34:15 04/24/19 25 04/26/2024 COMP. METAB OLIC PANEL creatinine 1.3 mg/dL 0.8-1. 3 Not Available [address], [address], 04/26/2024 09:34:15 04/24/19 25 04/26/2024 COMP. METAB OLIC PANEL B/C 15.4 ratio Not Available [address], [address], 04/26/2024 09:34:15 04/24/19 25 04/26/2024 COMP. METAB OLIC PANEL GFR >=60ML /MIN mL/mi n normal >=60m L/min - Manisha l or midly reduc ed <60mL /min- Decre ased kidne y funct ion <15mL /min - Kidne y failu re [facility] calcu lates estim ated Glome rular Filtr ation Rate (eGFR ) using the Chron ic Kidne y Disea se Epide miolo gy Colla borat ion (CKD- EPI) Equat ion (Tasha r et. al 2020) as recom nathaly d by the Natio nal Kidne y Found ation . eGFR is based on age, serum creat inine , and sex. CKD-E PI does not calcu late eGFR by race, does not apply to child filiberto (age <18 years ), and shoul d not be used in pregn sunita. Not Available [address], [address], 04/26/2024 09:34:15 04/24/1904/26/2024 COMP. METAB OLIC PANEL sodium 141 mmol/ L 136-14 5 Not Available [address], [address], 04/26/2024 09:34:15 04/24/1904/26/2024 COMP. METAB OLIC PANEL potassium 5.3 mmol/ L 3.5-5. 1 high Not Available [address], [address], 04/26/2024 09:34:15 04/24/1904/26/2024 COMP. METAB OLIC PANEL chloride 104 mmol/ L 96-107 Not Available [address], [address], 04/26/2024 09:34:15 04/24/1904/26/2024 COMP. METAB OLIC PANEL anion gap 9.0 5.0-15 .0 Not Available [address], [address], 04/26/2024 09:34:15 01/27/20 25 04/26/2024 COMP. METAB OLIC PANEL CO2 28 mmol/ L 21-32 Not Available [address], [address], 04/26/2024 09:34:15 04/24/19 25 04/26/2024 COMP. METAB OLIC PANEL calcium 8.6 mg/dL 8.5-10 .3 Not Available [address], [address], 04/26/2024 09:34:15 04/24/19 25 04/26/2024 COMP. METAB OLIC PANEL total protein 6.4 g/dL 6.4-8. 2 Not Available [address], [address], 04/26/2024 09:34:15 04/24/19 25 04/26/2024 COMP. METAB OLIC PANEL albumin 3.9 g/dL 3.4-5. 0 Not Available [address], [address], 04/26/2024 09:34:15 04/24/19 25 04/26/2024 COMP. METAB OLIC PANEL globulin 2.5 g/dL Not Available [address], [address], 04/26/2024 09:34:15 04/24/1904/26/2024 COMP. METAB OLIC PANEL A/G 1.6 ratio 0.8-2. 0 Not Available [address], [address], 04/26/2024 09:34:15 04/24/1904/26/2024 COMP. METAB OLIC PANEL total bilirubin 0.90 mg/dL 0.00-1 .00 Not Available [address], [address], 04/26/2024 09:34:15 04/24/19 25 04/26/2024 COMP. METAB OLIC PANEL AST 34 U/L 0-37 Not Available [address], [address], 04/26/2024 09:34:15 04/24/19 25 04/26/2024 COMP. METAB OLIC PANEL ALT 67 U/L 6-63 high Not Available [address], [address], 04/26/2024 09:34:15 04/24/19 25 04/26/2024 COMP. METAB OLIC PANEL alk. phos. 59 U/L 50-136 Not Available [address], [address], 04/26/2024 09:34:15 Result Notes None recorded. 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 Active Not Available [facility] 3 03:15:08 Liver function tests outside reference range 129396050 Active Not Available [facility] 3 03:15:08 Influenza 3488190 Completed 02/15/2013 Not Available [facility] 3 02:02:22 Hyperlipid emia 26601185 Active 2021 Zayra Peña PA-C [address] [place] [address], [phone] , [facility] 2 14:14:25 Coronary arterioscl erosis 15589440 Active 2023 Zayra Peña PA-C [address] [place] [address], [phone] , [facility] 4 14:54:22 Acute non-ST segment elevation myocardial infarction 535038894 Active 2023 Zayra Peña PA-C [address] [place] [address], [phone] , [facility] 14:54:23 Problem Notes None recorded. Procedures Surgical History Date Name Laterality Status Provider Name and Address Organization Details Recorded Time 8 POC Flu Testing completed Eli Neri LPN [facility] 06/24/2017 17:08:03 placement of stent in cardiac conduit completed Zayra Peña PA-C [address] [place] [address], [phone], [facility] 07/12/2023 14:54:48 Imaging Results None recorded. Procedure Notes None recorded. Medical Equipment None Reported. Allergies No known drug allergies Medications Name Sig Start Date Stop Date Status Note LastModified by Organization Details LastModified Time Prescript ion - Prior Authoriza tion Request 01/23 completed Not Available Not Available Not Available atorvasta tin 80 mg tablet TAKE 1 TABLET BY MOUTH DAILY AT BEDTIME active Not Available Not Available No t Available nitroglyc ronald 0.1 mg/hr transderm al 24 hour patch 12/24 completed has not started this because of BP 01/23/21 srp Not Available Not Available Not Available prednison e 20 mg tablet Take 3 tabs po x 2 d, then 2 t po x 2d, then 1 t po x 2 d, then ONE half tab x 2 d 05/20 completed Not Available Not Available Not Available Viagra 50 mg tablet Take 1 tablet every day by oral route as needed. 2010 active Not Available Not Available Not Avai lable Zithromax Z-Kalia 250 mg tablet Take 2 tablets (500 mg) by oral route once daily for 1 day then 1 tablet (250 mg) by oral route once daily for 4 days 2010 active Not Available Not Available Not Avai lable Flonase 50 mcg/actua tion nasal spray,linnea pension Isaban 1 spray every day by intranas al route for 30 days. 05/02 completed Not Available Not Available Not Available sildenafi l 25 mg tablet Take 2 tablets every day by oral route as needed. 01/30 completed Not Available Not Available Not Available aspirin 81 mg tablet,de layed release TAKE 1 TABLET BY MOUTH EVERY DAY active Not Available Not Available No t Available sildenafi l 100 mg tablet TAKE 1/2 TO 1 TABLET BY MOUTH DAILY NEEDED 01/30 completed Not Available Not Available Not Available imiquimod 5 % topical cream packet 04/19 completed Not Available Not Available Not Available benzonata te 100 mg capsule TAKE 1 TO 2 CAPSULES BY MOUTH THREE TIMES DAILY NEEDED FOR COUGH 04/19 completed Not Available Not Available Not Available doxycycli ne monohydra te 100 mg capsule Take 1 capsule twice a day by oral route for 10 days. 03/07 completed Not Available Not Available Not Available lisinopri l 10 mg tablet TAKE 2 TABLETS BY MOUTH DAILY active Not Available Not Available No t Available Culturell e 10 billion cell capsule Take 2 capsules twice a day by oral route for 14 days. 03/11 completed Not Available Not Available Not Available lisinopri l 5 mg tablet TAKE 1 TABLET BY MOUTH EVERY DAY 10/12 completed Not Available Not Available Not Available albuterol sulfate HFA 90 mcg/actua tion aerosol inhaler INHALE 2 PUFFS BY MOUTH UP TO FOUR TIMES DAILY BEFORE EXERCISE NEEDED 10/12 completed not taking 07/12/23 mk Not Available Not Available Not Available lisinopri l 40 mg tablet TAKE 1 TABLET BY MOUTH DAILY active Not Available Not Available No t Available tadalafil 5 mg tablet TAKE 1 TABLET BY MOUTH EVERY DAY active Not Available Not Available No t Available sildenafi l (pulmonar y hypertens ion) 20 mg tablet 01/23 completed Not Available Not Available Not Available Brilinta 90 mg tablet TAKE 1 TABLET BY MOUTH TWICE DAILY active Not Available Not Available No t Available ID NOW COVID-19 Test Kit TEST DIRECTED TODAY 12/24 completed Not Available Not Available Not Available Vitals Date Recorded Body height Body mass index (BMI) Body weight Heart rate Oxygen saturation Oxygen saturation in Arterial blood by Pulse oximetry Systolic blood pressure Diastolic blood pressure Provider Name and Address Organization Details Last Updated DateTime 2 179.07 cm 30 kg/m2 80876.3 3 g 58 /min 97 % 97 % 136 mm[Hg] 74 mm[Hg] April Alfaro MA [facility] 2 13:46:52 Date Recorded Body height Body mass index (BMI) Body weight Heart rate Systolic blood pressure Diastolic blood pressure Provider Name and Address Organization Details Last Updated DateTime 4 179.07 cm 30.7 kg/m2 65626.5 4 g 66 /min 138 mm[Hg] 86 mm[Hg] Lacy Torres [facility] 4 11:44:47 Date Recorded Body height Oxygen saturation Oxygen saturation in Arterial blood by Pulse oximetry Heart rate Body temperature Systolic blood pressure Diastolic blood pressure Provider Name and Address Organization Details Last Updated DateTime 4 179.07 cm 98 % 98 % 78 /min 98.5 [degF] 142 mm[Hg] 68 mm[Hg] Summer Gray [facility] 4 12:22:39 Date Recorded Body height Body mass index (BMI) Body weight Heart rate Systolic blood pressure Diastolic blood pressure Provider Name and Address Organization Details Last Updated DateTime 4 179.07 cm 29.9 kg/m2 49928.7 9 g 76 /min 122 mm[Hg] 70 mm[Hg] Crysgregorio Hitchcock [facility] 4 14:08:11 Date Recorded Body height Body mass index (BMI) Body weight Heart rate Oxygen saturation Oxygen saturation in Arterial blood by Pulse oximetry Systolic blood pressure Diastolic blood pressure Provider Name and Address Organization Details Last Updated DateTime 4 179.07 cm 29.6 kg/m2 29727.8 1 g 62 /min 98 % 98 % 116 mm[Hg] 72 mm[Hg] Sona Lamb [facility] 4 09:40:00 Social History Question Answer Notes LastModified by Organizat ion Details LastModified Time Tobacco Smoking Status Never Smoker Not Available [facility] 02/12/2011 04:53:49 Do You Have An Advance Directive? Yes [email or web address] Information not available 02/12/2011 What Is Your Level Of Alcohol Consumption? Occasional Once A Month 1-3 Drinks Information not available 12/24/2021 Do You Wear A Helmet When Biking? Yes Information not available 10/28/2015 What Is Your Level Of Caffeine Consumption? Moderate 20 Oz Coffee Daily Information not available 12/24/2021 Are You Currently Employed? Yes Information not available 12/24/2021 What Type Of Diet Are You Following? REGULAR Mostly Plant Based Avoids Red Meat [email or web address] Information not available 04/19/2023 Which Illicit Or Recreational Drugs Have You Used? None Information not available 10/28/2015 Do You Or Have You Ever Used E-cigarettes Or Vape? Never Used Electronic Cigarettes Information not available 01/23/2021 Education 4 Year College [email or web address] Information not available 02/12/2011 What Is The Highest Grade Or Level Of School You Have Completed Or The Highest Degree You Have Received? [id number] Information not available 12/24/2021 What Is Your Occupation? [employer] [email or web address] Information not available 04/19/2023 Have There Been Any Changes To Your Family Or Social Situation? No Getting [email or web address] Information not available 04/19/2023 Are There Any Guns Present In Your Home? Yes Information not available 10/28/2015 Do You Use Insect Repellent Routinely? No Information not available 12/24/2021 Live Alone Or With Others? Alone [email or web address] Information not available 02/12/2011 Marital Status Has GF [email or web address] Informati on not available 05/11/2012 Mosquito Repellent Used Routinely Yes Information not available 10/28/2015 What Was The Date Of Your Most Recent Tobacco Screening? 10/13/2023 [email or web address] Information not available 10/13/2023 How Many Children Do You Have? 2 7/ Information not available 12/24/2021 What Is Your Relationship Status? In A Month [email or web address] Information not available 04/19/2023 Do You Use Your Seat Belt Or Car Seat Routinely? Yes Information not available 12/24/2021 Seat Belts Used Routinely Yes Information not available 10/28/2015 Are You Sexually Active? Yes Information not available 10/28/2015 Smoke Alarm In Home Yes Information not available 10/28/2015 Do You Have Smoke And Carbon Monoxide Detectors In Your Home? Yes Information not available 12/24/2021 Are You Passively Exposed To Smoke? No Information not available 12/24/2021 Do You Or Have You Ever Used Smokeless Tobacco? Former Smokeless Tobacco User [email or web address] Information not available 10/13/2023 General Stress Level Medium Information not available 10/28/2015 Do You Use Any Illicit Or Recreational Drugs? No Information not available 12/24/2021 Do You Use Sunscreen Routinely? Yes Information not available 12/24/2021 Do You Or Have You Ever Used Any Other Forms Of Tobacco Or Nicotine? Yes Information not available 01/23/2021 How Many Days In The Past Year Have You Consumed 5 Or More Drinks? 1 [email or web address] Information not available 04/19/2023 Sex: Male Functional Status Question Answer Note LastModified by Organization D etails LastModified Time What is your exercise level? Heavy Information not available 12/24/2021 Mental Status None recorded. Family History Relationship Description Onset Age of this Age Resolved Age Notes LastModified by Organization Details LastModified Time Father Myocardial infarction 48 [email or web address] Not available 10/27 10:47:53 Notes:father - HTN, lipids, CAD, SD ; mother arthritis Medical History Condition Response Erectile Dysfunction Y Immunizations Vaccine Type Date Status Note Provider Nam e and Address Organization Details Recorded Time Tdap 3 completed Not Available [facility] 04/15/2019 02:31:51 Td (adult), 2 Lf tetanus toxoid, preservative free, adsorbed 2 completed Zayra Peña PA-C [address] [place] [address], [phone], [facility] 12/24/2021 14:22:07 COVID-19, mRNA, LNP-S, PF, 100 mcg/0.5mL dose or 50 mcg/0.25mL dose 1 completed KOLBY Solares [facility] 01/23/2021 10:06:04 COVID-19, mRNA, LNP-S, PF, 100 mcg/0.5mL dose or 50 mcg/0.25mL dose 1 completed KOLBY Soalres [facility] 01/23/2021 10:06:13 Past Encounters Encounter ID Performer Location Encounter Start Date Encounter Closed Date Diagnosis/Indication Diagnosis SNOMED-CT Code Diagnosis ICD10 Code Diagnosis Note [id number] [facility], OFFICE [address] [place] [address] 01/07/2009 08:21:47 01/07/2009 11:57:15 [id number] [facility] - [address] [address] 01/07/2009 09:08:20 01/07/2009 09:08:50 [id number] [facility] - [address] [address] 01/07/2009 00:00:00 01/24/2009 02:00:52 [id number] [facility], [address]ICE [address] [place] [address] 02/25/2009 16:01:56 02/28/2009 11:55:47 [id number] [facility] [address] [place] [address] 02/25/2009 16:30:19 02/26/2009 14:38:23 [id number] [facility], [address]ICE [address] [place] [address] 07/05/2009 10:17:20 07/05/2009 15:33:24 [id number] [facility], [address]ICE [address] [place] [address] 04/02/2010 10:06:11 04/07/2010 12:17:01 [id number] Erika Stevenson NP [facility], [address] [place] [address] 05/11/2012 10:14:27 05/11/2012 10:58:07 [id number] CARLOS A Bond [facility], [address] [place] [address] 10/28/2015 09:54:15 10/28/2015 11:08:27 Adult health examination 308324129 Z00.00 see Risk Assessment and Lifestyle Change Counseling section above, monitor lipids. Counseling [id number] Z71 .9 Psychosexu al dysfunction 585788239 F52.9 [id number] Abdi Nichols MD , [facility], [address] [place] [address] 06/24/2017 16:57:08 06/25/2017 12:28:09 Viral upper respiratory tract infection 586705376 J06.9 Educated patient that URI is a viral illness of the upper airways. It is not bacterial and does not benefit from antibiotic s. Average duration of URI is 7-10 days but in a recent trial, treatment at 7-10 days of illness with antibiotic s, intranasal steroids, or placebo did not alter natural history at 3 weeks. Recommende d symptomati c treatments including NSAIDS, semi-uprig ht sleep position, antihistam chiqui at HS, limited course of nasal sympathomi metics and/or cough syrups, and nasal saline rinses with soft squeeze bottle or Neti pot. Return for fevers > 101 for 3 days, worsening cough, sinus pain, or failure to resolve in 1weeks. To go to Urgent cre if symptoms worse over the week end.# provided. [id number] MD FAHEEM Mendoza, [facility], [address] [place] [address] 03/14/2018 08:33:20 03/14/2018 09:05:14 Psychosexual dysfunction 144672779 F52.9 [id number] CARLOS A Bond , [facility], [address] [place] [address] 01/23/2021 09:59:05 01/23/2021 10:45:22 Essential hypertension 11306358 I10 pt with two elevated readings outside of office, blood pressure at goal todayplan to acquire bp home cuffrtc with readings in two weeks Screening for malignant neoplasm of colon 602081670 Z12.11 Referral for a DIRECT booked colonoscop y. This patient is a healthy ASA Class 1 or 2 patient (only mild systemic disease), or a STABLE, well controlled insulin dependent diabetic. They do not have serious cardiac disease ie SD/angiopl asty within 1 year, symptomati c CHF; renal failure with CKD 4 or 5; take Coumadin, Plavix, Aggrenox, etc. [id number] CARLOS A Bond , [facility], [address] [place] [address] 02/07/2021 11:38:29 02/18/2021 08:15:52 Essential hypertension 01199471 I10 reviewed ASCVD riskpt opts for lifestyle inverventi ons and stress management follow up in 3 months [id number] INDRA Glynn, [facility], [address] [place] [address] 12/24/2021 13:31:13 12/24/2021 14:46:56 Adult health examination 099523209 Z00.00 Wellness exam: -Check labs today-TD updated today-Firs t colonoscop y screening ordered. Counseling 835645296 Z71 .9 including cardiovasc ular risk reduction counseling Depression screening 171 Z13.31 depression screening tool administer ed, entered into emr, scored and discussed, time greater than 7.5 minutes Screening for alcohol abuse [id number] Z13.39 Screening for malignant neoplasm of colon [id number] Z12.11 Referral for a DIRECT booked colonoscop y. This patient is a healthy ASA Class 1 or 2 patient (only mild systemic disease), or a STABLE, well controlled insulin dependent diabetic. They do not have serious cardiac disease ie SD/angiopl asty within 1 year, symptomati c CHF; renal failure with CKD 4 or 5; take Coumadin, Plavix, Aggrenox, etc. Hyperlipidemia [id number] E78.5 LDL 170/HDL 33; pt has made lifestyle changes and recheck labs today please. Psychosexu al dysfunction [id number] F52.9 ED: Pt states had online virtual visit with outside provider and was prescribed Cialis 5 mg QD which also helped lower his BP. He would like to continue this medication . Active or passive immunization [id number] Z23 [id number] INDRA Glynn, [facility], [address] [place] [address] 04/19/2023 11:23:01 04/26/2023 11:13:45 Adult health examination [id number] Z00.00 Wellness exam: -Colonosco py order sent again and pt will schedule-L abs and vaccines reviewed-P t plans to make derm appt routine around [place] where he works; he states he does not need a referral.F /u in 1 year. Depression screening 171 Z13.31 depression screening tool administer ed Screening for alcohol abuse [id number] Z13.39 Alcohol use screening tool administer ed Screening for malignant neoplasm of colon [id number] Z12.11 Referral for a DIRECT booked colonoscop y. This patient is a healthy ASA Class 1 or 2 patient (only mild systemic disease), or a STABLE, well controlled insulin dependent diabetic. They do not have serious cardiac disease ie SD/angiopl asty within 1 year, symptomati c CHF; renal failure with CKD 4 or 5; take Coumadin, Plavix, Aggrenox, etc. Vaccination not done [id number] 9108 Z28.9 Hyperlipidemia 23833213 E78.5 LDL 182/HDL40/ Tri 167 12/24/21Fa cayla h/o MIPt has been taking red rice yeast for 9 months.Rec [facility] labs today.Disc ussed statin therapy. Psychosexu al dysfunction [id number] F52.9 ED: Pt states had online virtual visit with outside provider previously and was prescribed Cialis 5 mg QD which also helped lower his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
--- OUTSIDE RECORDS SUMMARY | 2024-05-23 12:28 | XMS_ITS | Encounter Summary ---
Author Organization [facility] Address [address] [place] [id number] Care Team Providers Care Coin Machine Assembler Name Role Phone Unavailable Primary Care Provider Unavailabl e Encounter Details Date Type Department Care Team (Latest Contact Info) Description 04/02/2020 Lab Requisition [facility] COVID Drive Through [address] [place] [address] [address] [place] [address] Duglas Rondon, INDRA [address] [place] [address] Encounter for laboratory testing for COVID-19 virus Social History Tobacco Use Types Packs/Day Years Used Date Smoking Tobacco: Never Assessed Sex and Gender Information Value Date Recorded Sex Assigned at Not on file Gender Identity Not on file Sexual Orientation Not on file COVID-19 Exposure Response Date Recorded In the last month, have you been in contact with someone who was confirmed or suspected to have Coronavirus / COVID-19? Yes 04/02/2020 11:03 AM EST documented as of this encounter Plan of Treatment Not on file documented as of this encounter Procedures Procedure Name Priority Date/Time Associated Diagnosis Comments COVID-19 (SARS-COV-2) - SEMA4 LAB Routine 04/02/2020 11:10 AM EST Encounter for laboratory testing for COVID-19 virus [ICD-10-CM] documented in this encounter Results * COVID-19 (SARS-COV-2) (SEMA4) (04/02/2020 11:10 AM EST) COVID-19 RT-PCR NOT-DETECT ED Not-Detec jake 04/04/2020 1:22 AM EST YOVANY CARMEN Garcia MARTHA Comment:Interpretation: The viral RNA was not detected, making the COVID-19 diagnosis less likely. Clinical correlation is highly recommended.Final report signed by Bennett Chu, Ph.D., [facility], Laboratory DirectorTests performed at [facility] Microbiology Nasopharyngeal swab / Unknown 04/02/2020 11:10 AM EST 04/02/2020 11:10 AM EST Narrative [facility] 04/04/2020 1:22 AM EST Performed by [facility]., [address] [place] [address], CLIA# [id number] and [place] License# [id number] Duglas Rondon PA-C MICROBIOLOGY - NERAL ORDERABLES YOVANY THOMAS documented in this encounter Visit Diagnoses Diagnosis Encounter for laboratory testing for COVID-19 virus documented in this encounter
--- OUTSIDE RECORDS SUMMARY | 2024-05-23 12:28 | XMS_ITS | Clinical Summary ---
Author Organization [facility] Address [address] [place] [address] Care Team Providers Care Fire Watcher Name Role Phone Unavailable Primary Care Provider Unavailabl e Social History Tobacco Use Types Packs/Day Years Used Date Smoking Tobacco: Never Assessed Sex and Gender Information Value Date Recorded Sex Assigned at Not on file Gender Identity Not on file Sexual Orientation Not on file Plan of Treatment Health Maintenance Due Date Last Done Comments Hepatitis C Virus Screening 1969 HIV Screening 1982 DTaP/Tdap/Td Vaccines (1 - Tdap) 1988 Hepatitis B Vaccines (1 of 3 - 19+ 3-dose series) 1988 Colonoscopy 2014 Pneumococcal Vaccines 50+ (1 of 1 - PCV) 07/05/2019 Zoster (Shingles) Vaccine (1 of 2) 07/05/2019 Influenza Vaccine 10/28/2023 COVID-19 Vaccine (3 - 2023-2 5 season) 2023 05/09/2020, 04/11/2020 Pneumococcal Vaccine: Pediatric (0-5 Years) and At-Risk Patients (6 to 49 Years) Aged Out No longer eligible b ased on patient's age to complete this topic
== END 2024-05-23 11:23 | disposition home or self-care (01) ==
PROVIDERS: PCP Physician Assistant; Visit Provider Nurse Practitioner Family
DX: Z01.818 Encounter for other preprocedural examination (principal); Z12.11 Encounter for screening for malignant neoplasm of colon
CPT/HCPCS: S0285

== ENCOUNTER → 2024-05-23 10:30 | Outpatient (BNVA) | payer BC, SELFPAY | PROVIDERS: PCP Physician Assistant; Visit Provider Nurse Practitioner Family ==

== ENCOUNTER 2025-03-16 09:07 | Day surgery (SDC) | payer BC, SELFPAY ==
--- OUTSIDE RECORDS SUMMARY | 2025-02-15 18:41 | XMS_ITS ---
Author Name [facility] Organization Unknown Encounters Encounter Type Encounter Reason Primary Diagnosis Location Date [facility] 09/21/2023 [facility] 09/17/2023 [facility] 08/13/2023 [facility] 07/08/2023 [facility] 07/08/2023 [facility] 07[facility]08/2023 [facility] 07/08/2023 [facility] 07/08/2023 Care Team Organization Name Specialty Phone Email Start Date End [facility] 06/27
--- NOTE | 2025-03-13 10:34 | HO.ANESPROP2 ---
Documented by User: Daniella Waldron NP 03/13/25 10:36 HPI - Anesthesia Eval Consult details Narrative: 54yo M for Colonoscopy Cardiac optimized with low risk. Follows [facility] for CAD with NSTEMI 2023, stent to RCA. Stable at last office visit 01/2025 with recent negative stress echo. [facility] Past Medical History Medical History NSTEMI (non-ST elevated myocardial infarction) CAD (coronary artery disease) Dyslipidemia HTN (hypertension) Family History Family History Mother Cervical cancer Surgical History Surgical History History of heart artery stent Social History Social History Alcohol intake: current Comment: Socially only Patient Tobacco Use Status: Never used Tobacco Tobacco use type: Smokeless Tobacco e-Cigarette/Vaping Use: Never Used Use of substances other than those prescribed or required for medical reasons: No Advance Directives: No Advance Directives Information Provided: Yes Meds Allergies Allergy/AdvReac Type Severity Reaction Status Date / Time No Known Allergies Allergy Verified 05/23/24 10:44 Home Medications ?Medication ?Instructions ?Recorded ?Confirmed ?Last Taken ?Type tadalafil 5 mg tablet 5 mg PO DAILY 03/02/24 03/14/25 Unknown History aspirin 81 mg tablet,delayed 81 mg PO DAILY 05/23/24 03/14/25 Unknown History release (Adult Aspirin Regimen) atorvastatin 80 mg tablet 80 mg PO DAILY 05/23/24 03/14/25 Unknown History chlorhexidine gluconate 0.12 % 1 appl PO DAILY 05/23/24 Unknown History mouthwash lisinopril 40 mg tablet 40 mg PO DAILY 05/23/24 03/14/25 Unknown History Exam Narrative Narrative: EKG 01/2025 Ventricular Rate: 53 BPM Atrial Rate: 53 BPM P-R Interval: 162 ms QRS Duration: 92 ms Q-T Interval: 412 ms QTC Calculation(Bazett): 386 ms P [place]: 55 degrees R [place]: 9 degrees T [place]: -7 degrees Sinus bradycardia with Premature atrial complexes Otherwise normal ECG When compared with ECG of 16-Dec-2024 12:08, Premature atrial complexes are now Present Confirmed by Markus Escalante ([id number]) on 02/13/2025 11:08:35 AM Stress Test NM Myocard Perf SPECT Multi ? 08:00:00 Summary No evidence of stress induced ischemia or prior myocardial infarction. Normal left ventricular size and function with no regional wall motion abnormalities. Signatures _ _ ? Signed By: Attila Dominguez MD Stress Echocardiogram ? 09:40:58 Stress Interpretation Normal Exercise Tolerance Test, Normal Exercise Physiology, No EKG Evidence of Ischemia Echo Findings Rest Image quality is poor despite use of echocontrast. Normal left ventricular function. Ejection fraction is 55-65%. Cannot exclude basal to mid inferolateral wall and apical hypokinesis at rest. Peak Technically difficult imaging with limited and off axis views post stress despite use of LV contrast agent. Left ventricular systolic function is appropriately augmented following stress. There are no obvious regional wall motion abnormalities seen following stress on limited apical images. Parasternal imaging is inadequate. Summary Technically difficult imaging with limited and off axis views post stress despite use of LV contrast agent. Left ventricular systolic function is appropriately augmented following stress. There are no obvious regional wall motion abnormalities seen following stress on limited apical images. Parasternal imaging is inadequate. Excellent functional exercise capacity. ECG portion of the stress echo is reported separately. Signature ? Signed By: Stanislav Davis MD EchoEchocardiogram - Complete ? 09:38:59 Summary The left ventricular size is normal. The left ventricular wall thickness is upper normal. The LV systolic function is mildly reduced . The left ventricular ejection fraction is 45-50 %. The mid to distal inferolateral wall is hypokinetic . The basal to mid lateral wall is hypokinetic . The basal inferior wall is mildly hypokinetic . The basal to mid inferolateral wall is hypokinetic . The right ventricle is mildly dilated. Right ventricular systolic function appears preserved. Comparison No prior study available for comparison. Signature ? Signed By: Stanislav Davis MD Cardiac Cath ProcedureCardiac Cath Procedure ? 15:02:00 Conclusions Diagnostic Summary 53-year-old gentleman with chest pain and positive troponin, wall motion abnormalities by echo, here for coronary angiogram and possible revascularization. Normal left ventricular filling pressures. LVEDP 10-11 mmHg. Normal systemic pressures. No evidence of any gradient across aortic valve by catheter pullback from LV to aorta. Mildly reduced LV function by recent echo with possible inferior and inferolateral wall motion abnormalities. Coronary angiogram showed two-vessel CAD. There is a critical 99% lesion in proximal RCA with normal distal flow. The lesion is possibly thrombotic with underlying plaque rupture. There is evidence of collaterals to distal RCA from left system. Moderate mid LAD, severe ostial first diagonal and 60 to 65% stenosis of origin of RPDA. The proximal RCA lesion was felt to be potential culprit for patient?s acute coronary syndrome. Diagnostic Recommendations PCI of proximal RCA lesion. Interventional Summary Successful PCI of proximal RCA lesion using a 4.0 x 22 mm drug-eluting Juan Miguel frontier stent. The stent was postdilated using 4.5 mm NC balloon with excellent angiographic result. Final angiogram showed 0% residual with brisk distal flow. Interventional Recommendations Continue dual antiplatelet therapy for at least 1 year. Continue aspirin 81 mg daily indefinitely. Follow-up with Dr. Khan at [facility] in 2 weeks. Consider echo or nuclear stress test as an outpatient to assess LAD/diagonal territory ischemia. If there is significant ischemia in LAD/diagonal territory, we should consider repeat PCI of the same in the near future. Aggressive etc. modifications for secondary prevention. Follow-up echo in 3 to 4 months. Assessment and Plan Assessment Anesthesia Assessment: Chart Reviewed Documented by User: Leslie Wright MD 03/16/25 10:02 [facility] Past Medical History Medical History NSTEMI (non-ST elevated myocardial infarction) CAD (coronary artery disease) Dyslipidemia HTN (hypertension) Family History Family History Mother Cervical cancer Family history of problems with anesthesia: No Surgical History Surgical History History of heart artery stent History of Problems with Anesthesia: No Social History Social History Alcohol intake: current Comment: Socially only Patient Tobacco Use Status: Never used Tobacco Tobacco use type: Smokeless Tobacco e-Cigarette/Vaping Use: Never Used Use of substances other than those prescribed or required for medical reasons: No Advance Directives: No Advance Directives Information Provided: Yes Meds Allergies Allergy/AdvReac Type Severity Reaction Status Date / Time No Known Allergies Allergy Verified 05/23/24 10:44 Home Medications ?Medication ?Instructions ?Recorded ?Confirmed ?Last Taken ?Type tadalafil 5 mg tablet 5 mg PO DAILY 03/02/24 03/14/25 Unknown History aspirin 81 mg tablet,delayed 81 mg PO DAILY 05/23/24 03/14/25 Unknown History release (Adult Aspirin Regimen) atorvastatin 80 mg tablet 80 mg PO DAILY 05/23/24 03/14/25 Unknown History chlorhexidine gluconate 0.12 % 1 appl PO DAILY 05/23/24 Unknown History mouthwash lisinopril 40 mg tablet 40 mg PO DAILY 05/23/24 03/14/25 Unknown History Exam Airway Mallampati Class: II TM Dist: >3cm Neck ROM: Full Heart: rrr Lungs: cta Assessment and Plan Assessment Anesthesia Assessment: Anesthesia Plan Discussed Final Anesthetic Review Family History of Problems with Anesthesia: No History of Problems with Anesthesia: No NPO: Yes ASA Class: III Final Preanesthetic Review: No Changes in Pt Med Stat, Meds/Allgs Chart Reviewed, Consent Obtained/Reviewed and Anes Risks/Benef Reviewed Patient Risk: Intermediate Procedure Risk: Low Anesthetic Plan Anesthetic Plan: MAC: and Agree w/ Assess. and Plan Disposition: Standard PACU
[2025-03-14 13:39] VITALS: BMI 30.4
--- NOTE | 2025-03-16 08:38 | MHC.SHP ---
Pre-Procedural Eval Section A - 24 Hr Update-Section A only Date of Service: 03/16/25 The patient is an INPATIENT: No The patient has been examined within 24 hours of the surgical procedure. The History & Physical has been completed within 30 days and I have reviewed it.: No Section B - Complete if H&P > 30 days Chief Complaint: Colon cancer screening Relevant Family History (Specify if Yes): No Relevant Social History: Tobacco Use Present Medications: see Short Stay Collaborative assessment Medical History: Significant History (Dyslipidemia HTN (hypertension)) History of Previous Operations: Relevant previous surgery/procedure and date(s) (History of coronary stent) Allergies: Allergies Allergy/AdvReac Type Severity Reaction Status Date / Time No Known Allergies Allergy Verified 05/23/24 10:44 Review of Systems Sugical H&P ROS: Negative: Constitution, Cardiovascular, Respiratory and Gastrointestinal Exam Surgical H&P Exam: Normal: Heart, Normal: Lungs, Normal: Extremities and Normal: Abdomen Plan Diagnosis/Plan: Unchanged I have reviewed the history and physical and performed a pertinent physical examination on my patient. No changes have occurred unless specified. Time Spent With Patient Time: Total time managing care of this patient today ____ minutes.
[2025-03-16 09:27] VITALS: BMI 29.2
[2025-03-16] MEDS: Lactated Ringers 1,000 ML 100 ML IVCONT (09:38)
[2025-03-16 09:39] VITALS: BP 122/59; PULSE 58; RESP 16; TEMP 36.7; O2SAT 96
--- NOTE | 2025-03-16 11:19 | HO.OPN-COLON ---
Colonoscopy Operative Note Operative Note Date of Service: 03/16/25 Narrative: COLONOSCOPY TILL CECUM WITH POLYPECTOMY AND HEMOCLIP PLACED Pre-op diagnosis: Colon cancer screening (first colon). Post-op diagnosis:? Colon polyp, Diverticulosis, hemorrhoids Endoscopist:? Vadim Westbrook MD Anesthesia:?MAC Consent: Indications for the procedure and potential complications of bleeding, perforation, reaction to medications and missed diagnosis were discussed with the patient and informed consent was obtained. Instrument: Olympus CF H 190 L variable stiffness adult colonoscope Monitoring: Vital signs and clinical assessment, intermittent blood pressure monitoring, continuous EKG monitoring, Pulse oximetry and Carbon Dioxide monitoring were done throughout the procedure. Please see anesthesia flowsheet. Colon withdrawl time was 25 minutes. Procedure: The patient was placed in the left lateral decubitis position and pre-procedure medications were administered. After a digital rectal examination of the ano-rectum, the video colonoscope was inserted into the rectum and advanced through the colon to the cecum. The colonoscope was slowly withdrawn in a retrograde panoramic fashion and the colon mucosa was carefully examined including a retroflexed view of the rectum. Findings and interventions are described below. Procedure Difficulty: LLQ pressure was applied to intubate the cecum Findings: Terminal Ileum: Not evaluated Cecum: Partially evaluated due to suboptimal prep Ascending Colon: Normal Transverse Colon: Normal Descending Colon: Normal Sigmoid Colon: A 10-12 mm sessile polyp - removed with a hot snare. Polypectomy site was closed with 1 hemoclip. Moderate diverticulosis Rectum: Normal Ano-rectum: Moderate internal hemorrhoids Colon preparation: Good to fair despite copious irrigation. [place] Bowel Preparation Scale Right colon; 1-2 Transverse colon: 2 Left colon; 1-2 (0 = Unprepared colon segment with mucosa not seen due to solid stool that cannot be cleared. 1 = Portion of mucosa of the colon segment seen, but other areas of the colon segment not well seen due to staining, residual stool and/or opaque liquid. 2 = Minor amount of residual staining, small fragments of stool and/or opaque liquid, but mucosa of colon segment seen well. 3 = Entire mucosa of colon segment seen well with no residual staining, small fragments of stool or opaque liquid) Impression and Post Procedure Diagnosis: Colonoscopy Findings: One medium sized polyp was removed Moderate diverticulosis seen in the sigmoid colon Moderate hemorrhoids on retroflexed exam. Plan: I will send a letter with biopsy results Repeat Colonoscopy in 1 year if polyps are adenomatous and due to suboptimal prep (Adult colonoscope and Dulcolax 10 mg daily x 5 days + Miralax split prep for next colonoscopy) Above findings were reviewed with the patient and relevant handouts were given and the discharge area.
[2025-03-16 11:22] VITALS: BP 95/55; PULSE 56; RESP 16; TEMP 36.4; O2SAT 99
[2025-03-16 11:37] VITALS: BP 105/69; PULSE 47; RESP 12; O2SAT 100
[2025-03-16 11:50] VITALS: BP 102/66; PULSE 48; RESP 13; TEMP 36.3; O2SAT 99
== END 2025-03-16 12:44 | disposition home or self-care (01) ==
PROVIDERS: PCP Registered Nurse; Visit Provider Internal Medicine Gastroenterology
PROC: 0DJD8ZZ Inspection of Lower Intestinal Tract, Via Natural or Artificial Opening Endoscopic (ICD-10-PCS; CPT 45378; principal; 2025-03-16 10:30)
DX: Z12.11 Encounter for screening for malignant neoplasm of colon (principal); K57.30 Diverticulosis of large intestine without perforation or abscess without bleeding; K64.8 Other hemorrhoids; K63.5 Polyp of colon
CPT/HCPCS: 45385; 88305; J2704

== ENCOUNTER → 2025-03-16 09:07 | Outpatient (BNV) | payer BC, SELFPAY | PROVIDERS: PCP Registered Nurse; Visit Provider Internal Medicine Gastroenterology | DX: Z12.11 Encounter for screening for malignant neoplasm of colon (principal); K63.5 Polyp of colon; K57.30 Diverticulosis of large intestine without perforation or abscess without bleeding; K64.8 Other hemorrhoids; Z91.199 Patient's noncompliance with other medical treatment and regimen due to unspecified reason | CPT/HCPCS: 45385 ==